=== PATIENT | male | born 1965 | race Caucasian/White ===

== ENCOUNTER 2022-07-06 08:30 | Outpatient (CLI) | payer OTHER, SELFPAY ==
--- NOTE | 2022-07-06 09:15 | MR_ITS ---
[address] [address] Phone:?[phone] Fax:?[phone] Referring Physician Information: Syed Campos M.D. [address] [facility] [address] Phone:?[phone] Fax:?[phone] Patient:Carey Turk D.O.B:?1965 Sex:?Male Phone:?[phone] [facility] MRN:?[id number] Exam Date:?07/06/2022 ? EXAM: MR ARTHROGRAM of the LEFT SHOULDER CLINICAL HISTORY: Left shoulder and biceps tendon pain. COMPARISON: None available. TECHNICAL: Exam performed after fluoroscopically-guided gadolinium arthrography of the glenohumeral joint of the left shoulder, reported separately. MRI sequences of the left shoulder: coronal obliques: PD, PD FS, T1FS sagittal obliques: PDFS, T2 axials: PD, PDFS FINDINGS: Bones: No fracture or suspicious bone marrow signal abnormality. Coracoacromial arch: Acromion: No os acromiale. Type I-II acromion. Acromiohumeral space: The bony distance is unremarkable. Coracohumeral space: The bony distance is unremarkable. Acromioclavicular joint: Mild degenerative changes. Coracoclavicular ligament: The coracoclavicular ligament is intact. Rotator cuff and muscles/tendons: Supraspinatus: The supraspinatus tendon and muscle are intact. Infraspinatus: The infraspinatus tendon and muscle are intact. Teres minor: The teres minor tendon and muscle are intact. Subscapularis: The subscapularis tendon and muscle are intact. Labrum: There is fraying and ill-defined tearing of the labrum from the 12 o'clock position extending posteriorly and inferiorly through the 7 o'clock position posteroinferiorly best seen on coronal series 6 images 12 through 17 and axial series 3 images 16 through 21. There is also ill-defined labral tear at the 5:30 o'clock position anteroinferiorly best seen on coronal series 6 images 14 through 16. Proximal biceps tendon, long head and short heads: The long and short heads of the proximal biceps tendon are intact. Glenohumeral joint: Intra-articular contrast is present secondary to arthrogram injection. There is a 1.5 x 1.5 cm area of near full-thickness/full-thickness chondral loss over the superomedial portion of the left humeral head and extensive grade 2 and 3 chondral loss over the more inferior aspect of the medial portion of the left humeral head. No convincing evidence of capsular edema or thickening. The superior glenohumeral, coracohumeral, middle glenohumeral, and inferior glenohumeral ligaments are intact. Bursae: Subacromial-subdeltoid: No convincing subacromial bursal thickening/bursitis. Subcoracoid: No convincing subcoracoid bursal thickening/bursitis. IMPRESSION: 1. Fraying/ill-defined labral tearing from the 12 o'clock position extending posteriorly and inferiorly through the 7 o'clock position posterior inferiorly. In addition, ill-defined labral tear at the 5:30 o'clock position anteroinferiorly. 2. 1.5 x 1.5 cm area of near full-thickness/full-thickness chondral loss over the superomedial portion of the humeral head and extensive grade 2 and 3 chondral loss over the humeral head more inferiorly. 3. No rotator cuff tendon pathology, rotator cuff muscular atrophy, glenohumeral ligament injury, or biceps pathology of the left shoulder. RCB Electronically signed on 07/06/2022 11:44:00 AM by Speedy Norris M.D.
--- NOTE | 2022-07-06 09:15 | CRLHL7_ITS ---
For Patients: As a result of the Century Cures Act, medical imaging exams and procedure reports are released immediately into your electronic medical record. You may view this report before your referring provider. If you have questions, please contact your health care provider. Indication: snapping biceps pain Procedure : Informed consent was obtained. The site was marked. Time-out was performed. The skin of the left shoulder was cleansed with ChloraPrep. A sterile drape was placed. 8 cc of 1 percent lidocaine was administered for superficial anesthesia. Subsequently a 22 gauge spinal needle was introduced into the left shoulder joint under intermittent fluoroscopic guidance. Injection of 2 cc nonionic Omnipaque 240 contrast confirmed intra-articular location. Subsequently 11 cc of dilute gadolinium were injected. The needle was removed and hemostasis achieved with direct pressure. A dressing was placed. The patient tolerated the procedure well without immediate complication and was immediately sent to MRI for imaging. Total fluoroscopy time 37 seconds. Impression: Successful fluoroscopically guided left shoulder arthrogram for MRI. Dictated by Clark Gunderson MD @ 07/06/2022 10:53:03 AM (Electronically Signed)
== END 2022-07-06 08:31 | disposition home or self-care (01) ==
LOC: RAD 08:31
PROVIDERS: PCP Surgery; Visit Provider Family Medicine
DX: M25.512 Pain in left shoulder (principal); M75.22 Bicipital tendinitis, left shoulder; G89.29 Other chronic pain; S43.492A Other sprain of left shoulder joint, initial encounter
CPT/HCPCS: 23350; 73222; 77002; A9575